=== PATIENT | female | born 1990 | race Asian ===

== ENCOUNTER 2023-04-02 20:50 | Inpatient (IN) | payer BC, OTHER ==
[2023-04-02] MEDS ORDERED: DINOPROSTONE 10 MG VAGINAL SUPPOSITORY VG ONE (21:29)
[2023-04-02] MEDS: DEXTROSE 5%-LACTATED RINGERS 1,000 ML IV SCH (22:22)
[2023-04-02 22:56] LABS: BASO % 0.4 % (0-2.0); EOS % 0.7 % (0-4.5); HEMATOCRIT 36.2 % (32.4-45.2); HEMOGLOBIN 11.7 GM/dL (10.7-15.3); LYMPH % 16.7 % (8-40); MCHC 32.5 g/dl (32.0-36.0); MEAN CELL VOLUME 89.3 fl (80-96); MEAN PLT VOLUME 8.7 fl (7.5-11.1); MONO % 6.1 % (3.8-10.2); NEUT % 76.1 % (42.8-82.8); PLATELET COUNT 292 10^3/uL (134-434); RBC 4.05 M/mm3 (3.60-5.2); RDW 14.4 % (11.6-15.6); WHITE BLOOD COUNT 14.5 K/mm3 (4.0-10.0)
[2023-04-02 23:07] LABS: INR 0.94 (0.83-1.09); PROTHROMBIN TIME (PATIENT) 10.9 SEC (9.7-13.0)
[2023-04-02] MEDS ORDERED: SODIUM CHLORIDE 500 ML IV ONE ×2 (23:20→23:50)
[2023-04-02 23:44] LABS: ALBUMIN 2.7 g/dl (3.4-5.0); CALCIUM 8.6 mg/dL (8.5-10.1)
[2023-04-02 23:48] LABS: CREATININE 0.7 mg/dL (0.55-1.3)
[2023-04-02 23:49] LABS: BILIRUBIN,TOTAL 0.2 mg/dL (0.2-1); TOT PROT 6.7 g/dl (6.4-8.2)
[2023-04-03 00:09] VITALS: BMI 31.4
[2023-04-03] MEDS ORDERED: BUTORPHANOL TARTRATE 2 MG/ML VIAL IVPB ONE (01:30)
[2023-04-03] MEDS ORDERED: PROMETHAZINE HCL 25 MG/1 ML VIAL IVPB ONE (01:30)
[2023-04-03] MEDS ORDERED: PROMETHAZINE HCL 25 MG/1 ML VIAL ONE (01:43)
[2023-04-03] MEDS ORDERED: BUTORPHANOL TARTRATE 1 MG/ML VIAL ONE (01:43)
[2023-04-03] MEDS ORDERED: FENTANYL/BUPIVACAINE/NS/PF - PCEA - 50 ML DISP.SYRIN EP ONE (08:33)
[2023-04-03] MEDS ORDERED: FENTANYL CITRATE/PF 50 MCG/ML VIAL ONE ×3 (08:47→15:23)
[2023-04-03] MEDS ORDERED: OXYTOCIN 20 UNITS in 0.9% NS 20 UNIT/1,000 ML INFUS.BAG IV ONE ×2 (09:22→18:29)
[2023-04-03] MEDS ORDERED: OXYTOCIN 30 UNITS in 0.9% NS 30 UNIT/500 ML INFUS.BAG IVPB ONE (09:22)
[2023-04-03] MEDS ORDERED: OXYTOCIN 30 UNITS in 0.9% NS 30 UNIT/500 ML INFUS.BAG IVPB SCH (10:00)
[2023-04-03] MEDS ORDERED: ELECTROLYTE-148 SOLN 1,000 ML IV SCH (10:00)
[2023-04-03] MEDS ORDERED: NALOXONE HCL 0.4 MG/ML VIAL IVPUSH PRN (10:26)
[2023-04-03] MEDS ORDERED: FENTANYL/BUPIVACAINE/NS/PF - PCEA - 50 ML DISP.SYRIN EP SCH ×2 (10:30→10:37)
[2023-04-03] MEDS ORDERED: morphine SULFATE/PF 1 MG/2 ML (2cc Syringe - QUVA) ONE (15:23)
[2023-04-03] MEDS ORDERED: CITRIC ACID/SODIUM CITRATE 30 ML UNIT-DOSE CUP PO ONE (16:30)
[2023-04-03] MEDS ORDERED: ceFAZolin SODIUM 1 GM VIAL ONE (16:31)
[2023-04-03] MEDS ORDERED: EPINEPHrine 1:10,000 (P-F SYR) 1 MG/10 ML DISP.SYRIN ONE (16:32)
[2023-04-03] MEDS ORDERED: METOCLOPRAMIDE HCL INJECTION 10 MG/2 ML VIAL ONE (16:32)
[2023-04-03] MEDS ORDERED: SODIUM CHLORIDE 0.9% P/F 10 ML VIAL IJ ONE (16:32)
[2023-04-03] MEDS ORDERED: ONDANSETRON 4 MG/2 ML VIAL ONE (16:32)
[2023-04-03] MEDS ORDERED: OXYTOCIN 10 UNITS/ML VIAL ONE (16:47)
[2023-04-03 17:49] LABS: CORD BASE EXCESS -5.9 mmol/L (0-2); CORD HCO3 20.1 mmHg (20-29); CORD PCO2 41.5 mmHg (30-78); CORD pH 7.304 (7.14-7.44)
[2023-04-03 18:06] LABS: CORD BASE EXCESS -5.3 mmol/L (0-2); CORD HCO3 20.6 mmHg (20-29); CORD PCO2 41.6 mmHg (30-78); CORD pH 7.313 (7.14-7.44)
[2023-04-03 18:37] LABS: BASO % 0.4 % (0-2.0); EOS % 0.1 % (0-4.5); HEMOGLOBIN 9.6 GM/dL (10.7-15.3); LYMPH % 3.7 % (8-40); MCH 29.3 pg (25.7-33.7); MCHC 33.2 g/dl (32.0-36.0); MEAN CELL VOLUME 88.1 fl (80-96); MONO % 5.4 % (3.8-10.2); NEUT % 90.4 % (42.8-82.8); PLATELET COUNT 218 10^3/uL (134-434); RBC 3.29 M/mm3 (3.60-5.2); RDW 14.3 % (11.6-15.6); WHITE BLOOD COUNT 23.8 K/mm3 (4.0-10.0)
[2023-04-03] MEDS ORDERED: ACETAMINOPHEN 325 MG TABLET (FP) PO PRN (18:48)
[2023-04-03] MEDS ORDERED: IBUPROFEN 800 MG/8 ML IJ IVPB PRN (18:48)
[2023-04-03] MEDS ORDERED: BENZOCAINE 28 GM HEMORRHOIDAL OINTMENT TP PRN (18:48)
[2023-04-03] MEDS ORDERED: METHYLERGONOVINE MALEATE 0.2 MG/1 ML AMP IM PRN (18:48)
[2023-04-03] MEDS ORDERED: WITCH HAZEL 50% (TUCKS) 40 PAD/JAR PAD TP PRN (18:48)
[2023-04-03] MEDS ORDERED: BENZOCAINE 20% 57 GM BOTTLE TP PRN (18:48)
[2023-04-03] MEDS ORDERED: OXYTOCIN 20 UNITS in 0.9% NS 20 UNIT/1,000 ML INFUS.BAG IV SCH (19:00)
[2023-04-03 20:23] LABS: ANISOCYTOSIS 1+; MACROCYTOSIS 0
[2023-04-03] MEDS: DEXTROSE 5%-LACTATED RINGERS 1,000 ML IV SCH (22:14)
[2023-04-04] MEDS: CEFAZOLIN 1 GM in DEXTROSE 5%-WATER - 50 ML IVPB SCH ×2 (02:07→09:05)
[2023-04-04] MEDS ORDERED: oxyCODONE HCL 5 MG TABLET PO PRN ×2 (06:48)
[2023-04-04 07:03] LABS: HEMATOCRIT 28.9 % (32.4-45.2); HEMOGLOBIN 9.5 GM/dL (10.7-15.3); MCH 29.7 pg (25.7-33.7); MCHC 32.9 g/dl (32.0-36.0); MEAN CELL VOLUME 90.3 fl (80-96); MEAN PLT VOLUME 8.6 fl (7.5-11.1); PLATELET COUNT 224 10^3/uL (134-434); RDW 14.6 % (11.6-15.6); WHITE BLOOD COUNT 23.3 K/mm3 (4.0-10.0)
[2023-04-04 08:33] LABS: ANISOCYTOSIS 2+; MACROCYTOSIS 0
[2023-04-04] MEDS: IBUPROFEN 600 MG TABLET (FP) PO PRN ×2 (09:04→20:18)
[2023-04-04] MEDS: PRENATAL VITAMINS W/ FOLIC ACID TABLET (FP) PO SCH (09:05)
[2023-04-04] MEDS ORDERED: BISACODYL 10 MG SUPP.RECT RC PRN (18:48)
[2023-04-04] MEDS: SENNOSIDES/DOCUSATE COMBO (SENNA PLUS) TABLET (UD) PO PRN (20:18)
[2023-04-04] MEDS: SIMETHICONE 80 MG TAB.CHEW (FP) PO PRN (20:18)
[2023-04-04] MEDS ORDERED: PIPERACILLIN/TAZOB 3.375 GM 3.375 GM in DEXTROSE 5%-WATER - 50 ML IVPB ONE (21:18)
[2023-04-04 22:08] LABS: HEMATOCRIT 26.6 % (32.4-45.2); HEMOGLOBIN 8.9 GM/dL (10.7-15.3); MCH 29.7 pg (25.7-33.7); MCHC 33.6 g/dl (32.0-36.0); MEAN CELL VOLUME 88.5 fl (80-96); MEAN PLT VOLUME 7.8 fl (7.5-11.1); PLATELET COUNT 230 10^3/uL (134-434); RBC 3.01 M/mm3 (3.60-5.2); RDW 14.8 % (11.6-15.6); WHITE BLOOD COUNT 20.9 K/mm3 (4.0-10.0)
[2023-04-04 22:33] LABS: POTASSIUM 3.9 mmol/L (3.5-5.1)
[2023-04-04 22:35] LABS: CALCIUM 7.8 mg/dL (8.5-10.1)
[2023-04-04 22:36] LABS: BLOOD UREA NITROGEN 9.8 mg/dL (7-18)
[2023-04-04 22:39] LABS: CREATININE 0.6 mg/dL (0.55-1.3)
[2023-04-04 22:41] LABS: BILIRUBIN,TOTAL 0.2 mg/dL (0.2-1); TOT PROT 5.3 g/dl (6.4-8.2)
[2023-04-04 22:56] LABS: ANISOCYTOSIS 0; MACROCYTOSIS 0
[2023-04-04 23:02] LABS: EPI CELLS 31 /uL (0-25.1); HYALINE CASTS 1 /uL (0-3.1); PH,URINE 6.5 (5.0-8.0); URINE APPEARANCE CLEAR; URINE BACTERIA 33 /uL (0-1359); URINE BILIRUBIN NEGATIVE (NEGATIVE); URINE COLOR YELLOW; URINE GLUCOSE (UA) NEGATIVE (NEGATIVE); URINE KETONE NEGATIVE (NEGATIVE); URINE LEUK ESTERASE 2+ (NEGATIVE); URINE NITRITE NEGATIVE (NEGATIVE); URINE PROTEIN NEGATIVE (NEGATIVE); URINE RBC 40 /uL (0-23.9); URINE UROBILINOGEN 0.2 mg/dL (0.2-1.0); URINE WBC 46 /uL (0-25.8)
[2023-04-05] MEDS: SIMETHICONE 80 MG TAB.CHEW (FP) PO PRN ×2 (08:40→20:19)
[2023-04-05] MEDS: IBUPROFEN 600 MG TABLET (FP) PO PRN ×2 (08:41→20:19)
[2023-04-05] MEDS: PRENATAL VITAMINS W/ FOLIC ACID TABLET (FP) PO SCH (09:36)
[2023-04-05] MEDS: PIPERACILLIN/TAZOB 4.5 GM 4.5 GM in DEXTROSE 5%-WATER 100 ML IVPB SCH ×2 (14:59→20:13)
[2023-04-05] MEDS: SENNOSIDES/DOCUSATE COMBO (SENNA PLUS) TABLET (UD) PO PRN (20:19)
[2023-04-06] MEDS: PIPERACILLIN/TAZOB 4.5 GM 4.5 GM in DEXTROSE 5%-WATER 100 ML IVPB SCH ×3 (02:45→18:46)
[2023-04-06 06:46] LABS: BASO % 0.7 % (0-2.0); EOS % 2.4 % (0-4.5); HEMOGLOBIN 8.5 GM/dL (10.7-15.3); LYMPH % 24.1 % (8-40); MCH 30.4 pg (25.7-33.7); MEAN CELL VOLUME 89.6 fl (80-96); MEAN PLT VOLUME 8.1 fl (7.5-11.1); MONO % 3.2 % (3.8-10.2); NEUT % 69.6 % (42.8-82.8); PLATELET COUNT 239 10^3/uL (134-434); RBC 2.79 M/mm3 (3.60-5.2); RDW 14.9 % (11.6-15.6); WHITE BLOOD COUNT 9.2 K/mm3 (4.0-10.0)
[2023-04-06] MEDS: IBUPROFEN 600 MG TABLET (FP) PO PRN ×2 (09:49→18:51)
[2023-04-06] MEDS: PRENATAL VITAMINS W/ FOLIC ACID TABLET (FP) PO SCH (09:49)
[2023-04-07] MEDS: PIPERACILLIN/TAZOB 4.5 GM 4.5 GM in DEXTROSE 5%-WATER 100 ML IVPB SCH (02:29)
[2023-04-07] MEDS: PRENATAL VITAMINS W/ FOLIC ACID TABLET (FP) PO SCH (09:48)
[2023-04-07 12:05] VITALS: BP 131/79; PULSE 70; RESP 17; TEMP 98
== END 2023-04-07 13:30 | disposition home or self-care (01) | DRG 787 ==
LOC: JLDR 20:50 → J3W 04-03 21:09
PROVIDERS: ADMIT Obstetrics & Gynecology; ATTEND Obstetrics & Gynecology
PROC: 10D00Z1 Extraction of Products of Conception, Low, Open Approach (ICD-10-PCS; principal; 2023-04-03)
DX: O62.1 Secondary uterine inertia (principal); O72.1 Other immediate postpartum hemorrhage; O86.12 Endometritis following delivery; O86.4 Pyrexia of unknown origin following delivery; O48.0 Post-term pregnancy; D72.829 Elevated white blood cell count, unspecified; Z3A.40 40 weeks gestation of pregnancy; Z37.0 Single live birth
CPT/HCPCS: 36415; 36600; 80053; 81003; 82803; 83605; 85025; 85610; 85730; 86780; 86850; 86900; 86901; 87040; 87086; 88307-TC